=== PATIENT | male | born 2005 | race Caucasian/White ===

== ENCOUNTER 2023-09-09 00:21 | Emergency (ER) | payer OTHER ==
[2023-09-09 00:26] VITALS: BP 118/71; PULSE 74; RESP 16; TEMP 99; BMI 26.6
[2023-09-09] MEDS ORDERED: LIDOCAINE VISCOUS 2% ORAL/TOP 15 ML UNIT-DOSE CUP ONE (00:37)
[2023-09-09] MEDS: LIDOCAINE VISCOUS 2% ORAL/TOP 15 ML UNIT-DOSE CUP MM ONE (00:49)
== END 2023-09-09 01:09 | disposition home or self-care (01) ==
LOC: JER 00:21
DX: T16.1XXA Foreign body in right ear, initial encounter (principal); H92.01 Otalgia, right ear; X58.XXXA Exposure to other specified factors, initial encounter
CPT/HCPCS: 99283-25